=== PATIENT | female | born 1975 ===

== ENCOUNTER 2017-10-25 08:40 | Outpatient (CLI) | payer OTHER ==
[~2017-10-25] VITALS: Ht 152.4 cm; Wt 72.6 kg
== END 2017-10-25 09:00 | disposition home or self-care (01) ==
LOC: OFIC 805 08:40
DX: J31.2 Chronic pharyngitis (principal); J31.0 Chronic rhinitis; R49.0 Dysphonia

== ENCOUNTER 2018-12-26 10:35 | Outpatient (CLI) | payer OTHER ==
[~2018-12-26] VITALS: Ht 152.4 cm; Wt 68.0 kg
== END 2018-12-26 10:50 | disposition home or self-care (01) ==
LOC: OFIC 805 10:35
DX: J31.0 Chronic rhinitis (principal); R49.0 Dysphonia; J31.2 Chronic pharyngitis; G47.33 Obstructive sleep apnea (adult) (pediatric); R06.83 Snoring; R59.9 Enlarged lymph nodes, unspecified; R22.1 Localized swelling, mass and lump, neck